=== PATIENT | male | born 1950 | race Caucasian/White ===

== ENCOUNTER 2022-06-22 09:51 | Day surgery (SDC) | payer MEDICARE, OTHER ==
[~2022-06-22] VITALS: Ht 188 cm; Wt 92.6 kg
[~2022-06-22 09:51] MED LIST: AMOCLA875 PO; ASPI81CH; ATOR40TA; CVS LUTEIN 401 EACH; DAILY MULTIPLE1 EACH; Glucagon Emergen1 MG; INSLI100I; LEVSOD100; LOSA50; Patanol5 ML; VALS80
== END 2022-06-22 11:58 | disposition home or self-care (01) ==
LOC: ORSCSDS 09:51
PROVIDERS: Internal Medicine Gastroenterology
PROC: 0DJD8ZZ Inspection of Lower Intestinal Tract, Via Natural or Artificial Opening Endoscopic (ICD-10-PCS; principal; 2022-06-22 11:00)
DX: Z12.11 Encounter for screening for malignant neoplasm of colon (principal); Z86.010 Personal history of colon polyps; K57.30 Diverticulosis of large intestine without perforation or abscess without bleeding; E11.9 Type 2 diabetes mellitus without complications; Z79.4 Long term (current) use of insulin; Z87.891 Personal history of nicotine dependence; Z79.899 Other long term (current) drug therapy
CPT/HCPCS: 82947; J2704; J7120